=== PATIENT | male | born 1935 | race Caucasian/White ===

== ENCOUNTER 2017-08-01 12:00 | Inpatient (IN) | payer OTHER ==
[~2017-08-01] VITALS: Ht 175.3 cm; Wt 68.0 kg
[~2017-08-01 12:00] MED LIST: CIPRO750 MG PO; Colace 100MG PO; DIAZEPAM5 MG PO; NEURONTIN PO; PERCOCET 5/3251 TAB PO; PERCOCET 7.5-501 TAB PO; PREDNISONE5 MG/DOSE- PO
[2017-08-01] MEDS ORDERED: LISINOPRIL40 MG PO (13:49)
[2017-08-01] MEDS ORDERED: TOPROL XL50 M1 PO (13:50)
[2017-08-01] MEDS ORDERED: SYNTHROID50 MCG PO (13:50)
[2017-08-08] MEDS ORDERED: GABAPENTIN800 MG PO (12:17)
[2017-08-08] MEDS ORDERED: DOCUSATE SODIU100 MG PO (12:17)
[2017-08-08] MEDS ORDERED: PERCOCET 5-3251 EACH PO (12:18)
[2017-08-08] MEDS ORDERED: CLONAZEPAM1 MG PO (12:18)
[2017-08-08] MEDS ORDERED: AMOX-CLAV 875-1 EACH PO (12:18)
== END 2017-08-08 18:05 | DRG 455 ==
LOC: PED 08-07 05:00 → O/R 08-07 05:00 → SURH 08-07 09:45 → PED 08-07 11:22 → SURH 08-07 12:00 → PED 08-08 18:05
PROVIDERS: Orthopaedic Surgery Orthopaedic Surgery of the Spine
PROC: 0SG1071 Fusion of 2 or more Lumbar Vertebral Joints with Autologous Tissue Substitute, Posterior Approach, Posterior Column, Open Approach (ICD-10-PCS; 2017-08-07)
PROC: 0ST20ZZ Resection of Lumbar Vertebral Disc, Open Approach (ICD-10-PCS; 2017-08-07)
PROC: 0SG10AJ Fusion of 2 or more Lumbar Vertebral Joints with Interbody Fusion Device, Posterior Approach, Anterior Column, Open Approach (ICD-10-PCS; 2017-08-07)
PROC: 07DS3ZZ Extraction of Vertebral Bone Marrow, Percutaneous Approach (ICD-10-PCS; 2017-08-07)
PROC: 0SG10A0 Fusion of 2 or more Lumbar Vertebral Joints with Interbody Fusion Device, Anterior Approach, Anterior Column, Open Approach (ICD-10-PCS; principal; 2017-08-07 09:45)
DX: M51.16 Intervertebral disc disorders with radiculopathy, lumbar region (principal); M47.26 Other spondylosis with radiculopathy, lumbar region; M41.56 Other secondary scoliosis, lumbar region; I10 Essential (primary) hypertension; E03.8 Other specified hypothyroidism